=== PATIENT | male | born 1950 | race Caucasian/White ===

== ENCOUNTER → 2017-01-15 | Outpatient (CLI) | payer MEDICARE, OTHER ==
[~2017-01-15] MED LIST: DAILY MULTIPLE1 EAC1 PO; PRILOSEC20 MG PO
== END | disposition short-term general hospital (02) ==
LOC: CLONCO 07:58
DX: Z08 Encounter for follow-up examination after completed treatment for malignant neoplasm (principal); Z85.048 Personal history of other malignant neoplasm of rectum, rectosigmoid junction, and anus; Z92.3 Personal history of irradiation; Z92.21 Personal history of antineoplastic chemotherapy; Z90.49 Acquired absence of other specified parts of digestive tract